=== PATIENT | male | born 1995 | race Two or more races ===

== ENCOUNTER 2020-08-20 15:28 | Emergency (ER) | payer OTHER ==
[~2020-08-20] VITALS: Ht 182.9 cm; Wt 93.0 kg
[2020-08-20 16:02] VITALS: BP 127/72
[2020-08-20] MEDS ORDERED: ACETAMINOPHEN 500 MG TABLET PO ONE (16:30)
[2020-08-20] MEDS ORDERED: ACETAMINOPHEN 500 MG TABLET ONE (16:46)
== END 2020-08-20 17:30 | disposition home or self-care (01) ==
LOC: ED 17:00
DX: S93.491A Sprain of other ligament of right ankle, initial encounter (principal); X58.XXXA Exposure to other specified factors, initial encounter; Y93.89 Activity, other specified; Y92.89 Other specified places as the place of occurrence of the external cause; Y99.8 Other external cause status
CPT/HCPCS: 99283